=== PATIENT | male | born 1980 | race Caucasian/White ===

== ENCOUNTER 2018-09-13 10:28 | Emergency (ER) | payer BC, OTHER ==
--- NOTE | 2018-09-13 10:50 | EDPHY ---
H & P Time Seen by Provider: 09/13/18 10:40 HPI/ROS: Chief complaint. Chest pain HPI. 38-year-old male presents emergency department with 2 day history of left chest pain. It began after moving heavy boxes on Tuesday. He moved boxes again yesterday. He started to have chest pain Tuesday night. It is left anterior chest and described as pressure. Worse with deep breathing. Some radiation to the back. Pushing on on the sore area of his chest helps. He does have sore muscles on the left anterior chest. He has no history of heart problems, diabetes or hypertension. No unusual leg pain or swelling. No cough or fever. No abdominal pain ROS 10 systems were reviewed and negative with the exception of the elements mentioned in the history of present illness Past Medical/Surgical History: Healthy Family history dad has had CVA and ND with stents Social History: Single, daily smoker, no alcohol Smoking Status: Current every day smoker Physical Exam: General Appearance: Alert well-developed male mild distress. Vital signs are stable Eyes: Pupils equal and round no pallor or injection. ENT, Mouth: Mucous membranes are moist. Respiratory: There are no retractions, lungs are clear to auscultation. Cardiovascular: Regular rate and rhythm. Gastrointestinal: Abdomen is soft and nontender, no masses, bowel sounds normal. Neurological: Awake and alert, sensory and motor exams grossly normal. Skin: Warm and dry, no rashes. Musculoskeletal: Neck is supple nontender. Chest wall tender to palpation recreating his symptoms Extremities symmetrical, full range of motion. Psychiatric: Patient is oriented X 3, there is no agitation. Constitutional: Initial Vital Signs Temperature (C) 36.8 C 09/13/18 10:31 Heart Rate 51 L 09/13/18 10:31 Respiratory Rate 17 09/13/18 10:31 Blood Pressure 144/97 H 09/13/18 10:31 O2 Sat (%) 100 09/13/18 10:31 O2 Delivery Mode Room Air Allergies/Adverse Reactions: No Known Allergies Allergy (Unverified 09/13/18 10:30) Home Medications: Medication Instructions Recorded NK [No Known Home Meds] 09/13/18 Medical Decision Making - Diagnostics EKG Interpretation: EKG interpreted by me shows normal sinus rhythm normal interval and axis. QRS is normal there is no significant ST elevation or depression. No arrhythmia. The rate is 54 Imaging Results: Imaging Impressions Chest X-Ray 09/13/18 10:51 Impression: Normal. Procedures: IV normal saline, monitor. Toradol IV ED Course/Re-evaluation: Re-evaluation at 12:00 p.m.. Patient is stable. He and I discussed imaging lab EKG results. We discussed treatment plan including criteria for return importance of follow-up and further evaluation. He expresses understanding and agreement Differential Diagnosis: Clinically this is musculoskeletal pain. He is tender and has sore pectoralis muscles with palpation. He has risk factor of family history of father having an ND. Otherwise no history of hypertension or diabetes though he does smoke. His EKG is normal. His labs are normal. No evidence for acute coronary syndrome or pulmonary embolus. He agrees to cardiac follow-up. I do not think he needs his troponin repeated as symptoms have been present for 2 days. - Data Points Laboratory Results: Laboratory Results 09/13/18 10:40 09/13/18 10:40 09/13/18 09/13/18 09/13/18 10:52 10:40 10:40 WBC RBC Hgb Hct MCV MCH MCHC RDW Plt Count MPV Neut % (Auto) Lymph % (Auto) [place] % (Auto) Eos % (Auto) Baso % (Auto) Nucleat RBC Rel Count Absolute Neuts (auto) Absolute Lymphs (auto) Absolute Monos (auto) Absolute Eos (auto) Absolute Basos (auto) Absolute Nucleated RBC Immature Gran % Immature Gran # D-Dimer 0.29 ug/mLFEU ug/mLFEU (0.00-0.50) Sodium 137 mEq/L mEq/L (135-145) Potassium 4.2 mEq/L mEq/L (3.5-5.2) Chloride 105 mEq/L mEq/L (97-110) Carbon Dioxide 22 mEq/l mEq/l (22-31) Anion Gap 10 mEq/L mEq/L (6-14) BUN 12 mg/dL mg/dL (7-23) Creatinine 0.7 mg/dL mg/dL (0.7-1.3) Estimated GFR > 60 Glucose 85 mg/dL mg/dL (70-100) Calcium 9.9 mg/dL mg/dL (8.5-10.4) POC Troponin I 0.00 ng/mL ng/mL (0.00-0.08) 09/13/18 10:40 WBC 10.38 10^3/uL H 10^3/uL (3.80-9.50) RBC 5.18 10^6/uL 10^6/uL (4.40-6.38) Hgb 16.9 g/dL g/dL (13.7-17.5) Hct 49.9 % % (40.0-51.0) MCV 96.3 fL fL (81.5-99.8) MCH 32.6 pg pg (27.9-34.1) MCHC 33.9 g/dL g/dL (32.4-36.7) RDW 13.2 % % (11.5-15.2) Plt Count 243 10^3/uL 10^3/uL (150-400) MPV 9.9 fL fL (8.7-11.7) Neut % (Auto) 66.8 % % (39.3-74.2) Lymph % (Auto) 24.6 % % (15.0-45.0) [place] % (Auto) 6.9 % % (4.5-13.0) Eos % (Auto) 0.9 % % (0.6-7.6) Baso % (Auto) 0.6 % % (0.3-1.7) Nucleat RBC Rel Count 0.0 % % (0.0-0.2) Absolute Neuts (auto) 6.94 10^3/uL H 10^3/uL (1.70-6.50) Absolute Lymphs (auto) 2.55 10^3/uL 10^3/uL (1.00-3.00) Absolute Monos (auto) 0.72 10^3/uL 10^3/uL (0.30-0.80) Absolute Eos (auto) 0.09 10^3/uL 10^3/uL (0.03-0.40) Absolute Basos (auto) 0.06 10^3/uL 10^3/uL (0.02-0.10) Absolute Nucleated RBC 0.00 10^3/uL 10^3/uL (0-0.01) Immature Gran % 0.2 % % (0.0-1.1) Immature Gran # 0.02 10^3/uL 10^3/uL (0.00-0.10) D-Dimer Sodium Potassium Chloride Carbon Dioxide Anion Gap BUN Creatinine Estimated GFR Glucose Calcium POC Troponin I Medications Given: Discontinued Medications Ketorolac Tromethamine (Toradol) 30 mg IVP EDNOW ONE Stop: 09/13/18 11:01 Last Admin: 09/13/18 11:04 Dose: 30 mg Point of Care Test Results: Chemistry 09/13/18 10:52 POC Troponin I 0.00 ng/mL ng/mL (0.00-0.08) Departure - Departure Disposition: Home, Routine, Self-Care Clinical Impression: Chest pain Qualifiers: Chest pain type: other chest pain Qualified Code(s): R07.89 - Other chest pain ; R07.8 - Other chest pain Condition: Good Instructions: Chest Pain (ED) Additional Instructions: Heat to chest wall. Ibuprofen 600 mg every 6 hr Return for worsening chest discomfort or trouble breathing Follow-up with Cardiology for further evaluation Referrals: NONE *PRIMARY CARE P,. [Primary Care Provider] - As per Instructions Clifford Varner MD [Medical Doctor] - 2-3 days, call for appt.
[2018-09-13 10:57] LABS: PLATELET COUNT 243 10^3/uL (150-400)
[2018-09-13] MEDS ORDERED: KETOROLAC 30 MG/1 ML SDV IVP ONE (11:00)
[2018-09-13 12:05] VITALS: BP 140/94
--- NOTE | 2018-09-13 16:10 | CPEKG ---
Test Reason : OPEN Blood Pressure : / mmHG Vent. Rate : 054 BPM Atrial Rate : 053 BPM P-R Int : 131 ms QRS Dur : 084 ms QT Int : 435 ms P-R-T Axes : 074 069 072 degrees QTc Int : 413 ms Sinus rhythm Confirmed by Johann John ([id number]) on 09/13/2018 4:10:08 PM Referred By: Johann John Confirmed By:Johann John
== END 2018-09-13 12:16 | disposition home or self-care (01) ==
DX: R07.89 Other chest pain (principal); F17.200 Nicotine dependence, unspecified, uncomplicated
CPT/HCPCS: 84484-ER; 96374; J1885